=== PATIENT | female | born 1980 | race American Indian/Alaskan Native ===

== ENCOUNTER 2018-11-08 12:43 | Observation (INO) | payer OTHER ==
[~2018-11-08] VITALS: Ht 165.1 cm; Wt 77.1 kg
[~2018-11-08 12:43] MED LIST: Amox Tr-K Clv1 EAC2 PO; Augmentin 875-1 EACH PO; HYDACE5; IBUP600 PO; IBUP800; LORA1 PO; META800 PO; NAPR500 PO; NUVARING; ONDA4ODT MM; OXYACE5T; PRED1 PO; PROM25 PO; Percocet 5-3251 EACH PO; RANI150 PO; TRAM50 PO
[2018-11-08 14:13] LABS: BASOPHILS ABSOLUTE AUTO 0.06 K/mm3 (0.00-0.23); BASOPHILS PERCENT AUTO 0 % (0-2); EOSINOPHILS ABSOLUTE AUTO 0.13 K/mm3 (0.00-0.68); EOSINOPHILS PERCENT AUTO 1 % (0-6); Hematocrit 34.8 % (33.0-51.0); Hemoglobin 11.3 g/dL (11.5-16.0); IMMATURE GRAN ABSOLUTE AUTO 0.08 K/mm3 (0.00-0.10); IMMATURE GRAN PERCENT AUTO 1 % (0-1); LYMPHOCYTES ABSOLUTE AUTO 1.65 K/mm3 (0.84-5.20); LYMPHOCYTES PERCENT AUTO 10 % (21-46); MONOCYTES ABSOLUTE AUTO 0.89 K/mm3 (0.16-1.47); MONOCYTES PERCENT AUTO 5 % (4-13); Mean Corpuscular HGB 31.3 pg (26.0-34.0); Mean Corpuscular HGB Conc 32.5 g/dL (31.5-36.5); Mean Corpuscular Volume 96 fL (80-100); Mean Platelet Volume 10.4 fL (9.1-12.4); NEUTROPHILS ABSOLUTE AUTO 14.28 K/mm3 (1.96-9.15); NEUTROPHILS PERCENT AUTO 83 % (41-73); Platelet Count 317 K/mm3 (150-400); RDW Coefficient Variation 12.9 % (11.7-14.2); RDW Standard Deviation 45.4 fL (35.1-46.3); Red Blood Cell Count 3.61 M/mm3 (3.80-5.20); White Blood Cell Count 17.09 K/mm3 (4.00-11.30)
[2018-11-08 14:37] LABS: Alanine Aminotransfer (ALT/SGP 15 U/L (12-78); Albumin, Blood 3.8 g/dL (3.4-5.0); Alk Phos 82 U/L (50-136); Anion Gap 6 mmol/L (6-16); Aspartate Aminotrans (AST/SGOT 10 U/L (12-37); Bilirubin, Total 0.4 mg/dL (0.1-1.0); Blood Urea Nitrogen 5 mg/dL (8-24); Bun/Creatinine Ratio 8.2 (12.0-20.0); CO2, Blood 24 mmol/L (21-32); Chloride, Blood 106 mmol/L (98-108); Creatinine, Blood 0.61 mg/dL (0.40-1.00); Globulin, Blood 3.7 g/dL (2.2-4.0); Glomerular Filtration Rate >60 (60-); Glucose, Blood 98 mg/dL (70-99); Potassium, Blood 3.6 mmol/L (3.5-5.5); Sodium, Blood 136 mmol/L (136-145); Total Protein, Blood 7.5 g/dL (6.4-8.2)
[2018-11-08 15:50] LABS: Source, Urine Clean Catch
[2018-11-08 15:54] LABS: Bilirubin, Urine Neg (Neg); Blood, Urine 5+ (Neg); Glucose Qualitative, Urine Neg (Neg); Ketones, Urine 1+ (Neg); Leukocyte Esterase, Urine 2+ (Neg); Nitrite, Urine Neg (Neg); Protein, Urine 1+ (Neg); Specific Gravity, Urine 1.015 (1.003-1.022); Urobilinogen, Urine 1+ (Normal)
[2018-11-08 16:00] LABS: Appearance, Urine Hazy (Clear); Color, Urine Yellow (P-Yellow)
[2018-11-08 16:02] LABS: Bacteria Few /hpf; Mucus Mod (0-Heavy); Squamous Epithelial Cells Few /hpf (Few)
--- NOTE | 2018-11-08 18:00 | NUR ---
11/08/18 Minerva Estrella PT DID NOT RECIEVE PREOP ANTIBIOTICS AND THIS WAS CONFIRMED WITH DR JONES.
[2018-11-09 05:02] LABS: BASOPHILS ABSOLUTE AUTO 0.02 K/mm3 (0.00-0.23); BASOPHILS PERCENT AUTO 0 % (0-2); EOSINOPHILS PERCENT AUTO 0 % (0-6); Hematocrit 22.9 % (33.0-51.0); Hemoglobin 7.4 g/dL (11.5-16.0); IMMATURE GRAN ABSOLUTE AUTO 0.07 K/mm3 (0.00-0.10); IMMATURE GRAN PERCENT AUTO 1 % (0-1); LYMPHOCYTES ABSOLUTE AUTO 0.78 K/mm3 (0.84-5.20); LYMPHOCYTES PERCENT AUTO 5 % (21-46); MONOCYTES ABSOLUTE AUTO 0.92 K/mm3 (0.16-1.47); MONOCYTES PERCENT AUTO 6 % (4-13); Mean Corpuscular HGB 31.1 pg (26.0-34.0); Mean Corpuscular HGB Conc 32.3 g/dL (31.5-36.5); Mean Corpuscular Volume 96 fL (80-100); Mean Platelet Volume 10.6 fL (9.1-12.4); NEUTROPHILS ABSOLUTE AUTO 13.06 K/mm3 (1.96-9.15); NEUTROPHILS PERCENT AUTO 88 % (41-73); Platelet Count 233 K/mm3 (150-400); RDW Coefficient Variation 12.9 % (11.7-14.2); RDW Standard Deviation 45.2 fL (35.1-46.3); Red Blood Cell Count 2.38 M/mm3 (3.80-5.20); White Blood Cell Count 14.85 K/mm3 (4.00-11.30)
--- NOTE | 2018-11-09 06:27 | NUR ---
LYING IN HIGH FOWLERS WITH EYES OPEN WHILE WATCHING TV AND MUNCHING ON SNACKS PROVIDED BY SO. DENIES PAIN, DISCOMFORT, OR FURTHER NEEDS. SELF CARE, AMBULATES INDEPENDENTLY IN ROOM. DENIES FURTHER NEEDS AT THIS TIME. WILL GIVE HAND OFF TO ONCOMING SHIFT USING SBAR.
--- NOTE | 2018-11-09 08:05 | NUR ---
pt req pain meds no flatus no nausea this am pt stated scant vag bleeding did state that she passed a clot but she stated it was pink and not red
--- NOTE | 2018-11-09 09:46 | NUR ---
dr eran knight by to see pt
[2018-11-09] MEDS ORDERED: IBUP800 PO (10:09)
[2018-11-09] MEDS ORDERED: Norco 5-325 Ta1 EACH PO (10:09)
[2018-11-09] MEDS ORDERED: ONDA4ODT MM (10:10)
--- NOTE | 2018-11-09 10:39 | NUR ---
pt drowsy went to go over discharge with pt pt req i come back after her nap
--- NOTE | 2018-11-09 11:56 | NUR ---
pt awake from nap discharge instructions reviewed rx given pt wanting to take a shower before she leaves will also med with meal at lunch
--- NOTE | 2018-11-09 12:13 | NUR ---
PT EATING PAIN MEDS GIVEN AWAITING FOR RIDE
--- NOTE | 2018-11-09 13:57 | NUR ---
no acute changes wc escort to car
[2018-11-14 14:50] LABS: Performing Lab SYMBIODX; Test Name MOLAR PREGNANCY
[2018-11-22 09:51] LABS: Result SEE PATHOTH RESULTS
== END 2018-11-09 13:55 | disposition home or self-care (01) ==
LOC: ER 12:43 → SURS 12:44
PROVIDERS: Physician Assistant; ADMIT Obstetrics & Gynecology
PROC: 0UT54ZZ Resection of Right Fallopian Tube, Percutaneous Endoscopic Approach (ICD-10-PCS; 2018-11-08)
PROC: 10T24ZZ Resection of Products of Conception, Ectopic, Percutaneous Endoscopic Approach (ICD-10-PCS; principal; 2018-11-08 17:00)
PROC: 0UT04ZZ Resection of Right Ovary, Percutaneous Endoscopic Approach (ICD-10-PCS; 2018-11-08 17:00)
DX: O00.101 Right tubal pregnancy without intrauterine pregnancy (principal); O08.0 Genital tract and pelvic infection following ectopic and molar pregnancy; O34.80 Maternal care for other abnormalities of pelvic organs, unspecified trimester; N83.11 Corpus luteum cyst of right ovary; F17.210 Nicotine dependence, cigarettes, uncomplicated; Z88.2 Allergy status to sulfonamides
CPT/HCPCS: 36415; 76801; 76817; 80053; 81001; 81025; 84702; 85025; 86850; 86900; 86901; 87086; 88305; 88342; 88374; 94762; 96361; 96374; 96375; 99285-25; A9270-GY; G0378; J1100; J1885; J2250; J2405; J2704; J2765; J3010; J7120